=== PATIENT | male | born 1990 | race Two or more races ===

== ENCOUNTER 2018-12-19 00:23 | Emergency (ER) | payer OTHER, MEDICAID ==
[~2018-12-19] VITALS: Ht 170.2 cm; Wt 136.1 kg
--- NOTE | 2018-12-19 00:40 | NUR ---
PT KAYCEE S/P UNWITNESSED SYNCOPE EPISODE. PT STATES "I'M TIRED, I WAS WORKING OUT TOO HARD". PT DENIES ANY SOB, CP, N/V/D. PT AAOX4. RESPIRATIONS EVEN AND UNLABORED. SKIN INTACT. NO ACUTE DISTRESS NOTED.
--- NOTE | 2018-12-19 01:12 | NUR ---
OFFERED PT FOOD AND WATER, PT REFUSED. STATES HE JUST WANTS TO SLEEP. PT MEDICALLY CLEARED FOR DISCHARGE. CALLED NURSING SUP FOR TAP CARD.
[2018-12-19 01:38] VITALS: BP 141/74
--- NOTE | 2018-12-19 01:38 | NUR ---
Patient given written and verbal discharge instructions. Patient verbalizes understanding of instructions. Patient is ambulatory with steady gait. Refuses offer of assisted placement. Patient given list of available shelters in surrounding area. PT GIVEN TAP CARD, WEATHER APPROPRIATE CLOTHING, AND FOOD ON WAY OUT.
== END 2018-12-19 01:43 | disposition home or self-care (01) ==
LOC: ER 00:26
DX: I10 Essential (primary) hypertension (principal); E66.01 Morbid (severe) obesity due to excess calories; Z68.42 Body mass index [BMI] 45.0-49.9, adult